=== PATIENT | male | born 1950 | race American Indian/Alaskan Native ===

== ENCOUNTER 2019-04-07 08:07 | Day surgery (SDC) | payer MEDICARE ==
[~2019-04-07 08:07] MED LIST: ceFAZolin/STERILE WATER 2 GM/20 ML SYRINGE IV NR; metroNIDAZOLE/NS 500 MG/100 ML 500 MG/100 ML BAG IV NR
--- NOTE | 2019-04-07 09:21 | Anesthesia Consultation ---
Anesthesia Consult and Med Hx - Airway Anesthetic Teeth Evaluation: Dentures ROM Head & Neck: Adequate Mental/Hyoid Distance: Adequate Mallampati Class: Class II Intubation Access Assessment: Good - Pulmonary Exam CTA: Yes - Cardiac Exam Cardiac Exam: RRR - Pre-Operative Health Status ASA Pre-Surgery Classification: ASA3 Proposed Anesthetic Plan: General (HTN, hx Colon Ca, for GA) - Pulmonary Hx Smoking: Yes (STOPPED CIAG. NOW OCC CIGAR) Hx Sleep Apnea: No (DEBBY PRE SCREEN HIGH RISK) - Cardiovascular System Hx Hypertension: Yes Hx Heart Attack/AMI: No Hx Heart Murmur: Yes - Central Nervous System Hx Psychiatric Problems: No - Hematic Hx Anemia: No - Other Systems Hx Alcohol Use: No Hx Substance Use: No Hx Cancer: Yes
--- NOTE | 2019-04-07 09:21 | Anesthesia Day of Surgery ---
Anesthesia Day of Surgery - Day of Surgery Patient Examined: Yes Patient H&P Reviewed: Yes Patient is NPO: Yes
[2019-04-07] MEDS ORDERED: ONDANSETRON 4 MG/2 ML INJ IV PRN (09:22)
[2019-04-07] MEDS ORDERED: HYDROmorphone 1 MG/1 ML INJ IV PRN (09:22)
[2019-04-07] MEDS ORDERED: LACTATED RINGERS 1,000 ML IV SCH (10:00)
[2019-04-07] MEDS ORDERED: MIDAZOLAM 2 MG/2 ML INJ IV NR (10:00)
[2019-04-07] MEDS ORDERED: LIDOCAINE MPF (2%) 20 MG/1 ML VIAL 5 ML ONE (11:17)
[2019-04-07] MEDS ORDERED: fentaNYL 100 MCG/2 ML INJ ONE (11:18)
[2019-04-07] MEDS ORDERED: PROPOFOL 200 MG/20 ML VIAL IV ONE (11:18)
[2019-04-07] MEDS ORDERED: PHENYLEPHRINE/NS 1,000 MCG/10 ML SYRINGE (OR USE) IV ONE (11:20)
[2019-04-07] MEDS ORDERED: ONDANSETRON 4 MG/2 ML INJ ONE (11:20)
[2019-04-07] MEDS ORDERED: dexAMETHasone 20 MG/5 ML VIAL ONE (11:20)
[2019-04-07] MEDS ORDERED: WATER FOR IRRIG STERILE 2000 ML IR ONE (11:39)
--- NOTE | 2019-04-07 11:55 | Short Stay Summary ---
Short Stay Documentation Date of service: 04/07/19 - History H&P: obtained from office - Allergies and Medications Current Medications: Allergies No Known Allergies Allergy (Verified 04/05/19 12:17) Home Medications Medication Instructions Recorded Confirmed Last Taken Type Aspirin 81 mg PO DAILY 04/04/19 04/04/19 04/01/19 History Fenofibrate 160 mg PO DAILY 04/04/19 04/07/19 04/05/19 09:00 History Lisinopril/Hydrochlorothiazide 20 mg PO DAILY 04/04/19 04/07/19 04/05/19 09:00 History Losartan [Cozaar] 50 mg PO QDAY 04/05/19 04/07/19 04/05/19 09:00 History Simvastatin 20 mg PO DAILY 04/05/19 04/07/19 04/05/19 09:00 History Active Medications Cefazolin Sodium (Ancef/Sterile Water 2 Gm/20 Ml) 2 gm IV PREOP NR Stop: 04/07/19 23:59 Hydromorphone HCl (Dilaudid) 0.25 mg IV Q10MIN PRN PRN Reason: Pain, Moderate (4-6) Stop: 04/07/19 22:00 Lactated Ringer's (Lactated Ringers) 1,000 mls @ 100 mls/hr IV DIRECT AMANDEEP Last Admin: 04/07/19 09:55 Dose: 100 mls/hr Documented by: Midazolam HCl (Versed) 2 mg IV PREOP NR Stop: 04/07/19 23:59 Last Admin: 04/07/19 10:01 Dose: 2 mg Documented by: Ondansetron HCl (Zofran) 4 mg IV ONCE PRN PRN Reason: Nausea And Vomiting Stop: 04/07/19 16:00 - Brief post op/procedure progress note Date of procedure: 04/07/19 Pre-op diagnosis: hematuria Post-op diagnosis: same Procedure: cysto, rpg Anesthesia: GETA Surgeon: BRUNO MILLER Condition: stable - Hospital course Hospital course: ultram, cipro - Disposition Condition at discharge: Stable Disposition: DC-01 TO HOME OR SELFCARE Short Stay Discharge Plan Follow up with: JENNIFER GUPTA MD [Primary Care Provider] - 7 Days
[2019-04-07 12:46] VITALS: BP 148/75
--- NOTE | 2019-04-07 13:27 | Operative Report ---
PREOPERATIVE DIAGNOSIS: Hematuria. POSTOPERATIVE DIAGNOSIS: Hematuria. PROCEDURE: Cystoscopy, bilateral retrograde pyelograms. SURGEON: Chester Davis MD ANESTHESIA: General. ESTIMATED BLOOD LOSS: Minimal. FLUIDS: Crystalloid. COMPLICATIONS: No complications. INDICATIONS: This patient is a 69-year-old gentleman seen in the office, episode of hematuria, has a history of smoking in the past and also some right flank pain. He underwent CT of abdomen and pelvis, which was unremarkable; however, he presents now for surgical intervention. Risks, benefits, and complications were explained. DESCRIPTION OF PROCEDURE: The patient was taken to the operative suite, placed in a supine position. After adequate general anesthesia, he was placed in a dorsal lithotomy position, prepped and draped in a sterile fashion. Pancystourethroscopy was performed with 22-Mexican Storz cystoscope, no urethral abnormalities. His prostate displayed some moderate trilobar obstruction. Bladder, no tumors or stones were noted. He had some diffuse mild trabeculation and trigonitis. Bilateral retrograde pyelograms were obtained with an 8-Mexican Zay catheter and 8 mL of contrast. No filling defects or obstruction. There is a phlebolith on the right side distal to the ureters (not in the ureter). Bladder was drained. Rectal exam was benign. He was extubated and taken to recovery room in stable condition. JOB# [id number] TRACI/ROXANA
--- NOTE | 2019-04-07 18:05 | Fluoroscopy Report ---
FL retrograde urography bilateral INDICATION / CLINICAL INFORMATION: HEMATURIA. COMPARISON: None available. FINDINGS: Bilateral retrograde pyelograms were performed. Client Services Analyst views demonstrate no evidence of urinary tract calculus. The pelvicalyceal systems and ureters are normal in appearance. I see no evidence of fillin g defect or hydronephrosis. Images of the urinary bladder are unremarkable. There is no evidence of o bstruction on postdrainage views. No complication of the procedure is seen. Fluoroscopy time: 20 seconds. Fluoroscopic images: 8. Signer Name: Edmund Ch MD Signed: 04/07/2019 6:01 PM Workstation Name: [id number]
--- NOTE | 2019-04-08 08:18 | Post Anesthesia Evaluation ---
- Post Anesthesia Evaluation Patient Participated: Yes Airway Patent: Yes Stable Respiratory Function: Yes Nausea/Vomiting: No Temp > 96.8F: Yes Pain Manageable: Yes Adequeate Hydration: Yes Anesthesia Complications: No Block Receding Appropriately: Not Applicable Patient on Ventilator: No
== END 2019-04-07 13:20 | disposition home or self-care (01) ==
LOC: OR 08:07
PROVIDERS: ATTEND Urology
DX: R31.9 Hematuria, unspecified (principal); E78.00 Pure hypercholesterolemia, unspecified; I10 Essential (primary) hypertension; F17.210 Nicotine dependence, cigarettes, uncomplicated; Z85.068 Personal history of other malignant neoplasm of small intestine; Z90.49 Acquired absence of other specified parts of digestive tract; Z98.890 Other specified postprocedural states; Z79.899 Other long term (current) drug therapy; Z79.82 Long term (current) use of aspirin
CPT/HCPCS: 36415; 52005; 74420; 84132; A4217; J0690; J1100; J2250; J2370; J2405; J2704; J3010; J7120; Q9967